=== PATIENT | male | born 1940 | race Caucasian/White ===

== ENCOUNTER 2016-06-08 06:33 | Day surgery (SDC) | payer OTHER ==
[2016-06-08] MEDS ORDERED: PROPOFOL 200 MG/20 ML VIAL IVP ONE (06:49)
[2016-06-08] MEDS ORDERED: MIDAZOLAM 2 MG/2 ML VIAL IVP ONE (06:49)
[2016-06-08] MEDS ORDERED: NS 500 ML IV ONE (06:49)
[2016-06-08] MEDS ORDERED: fentaNYL 100 MCG/2 ML INJ IVP ONE (06:49)
[2016-06-08] MEDS ORDERED: BENZOCAINE UNIT DOSE SPRAY HURRICAINE MM ONE (06:49)
--- NOTE | 2016-06-08 06:55 | CPEKG ---
Heart Rate: 108 RR Interval: 556 QRSD Interval: 92 QT Interval: 368 QTC Interval: 494 QRS [place]: 56 T Wave [place]: 48 EKG Severity - ABNORMAL ECG - EKG Impression: ATRIAL FIBRILLATION, V-RATE 84-149 EKG Impression: BORDERLINE PROLONGED QT INTERVAL EKG Impression: Agree with above Electronically Signed By: Quincy Galvan 08-Jun-2016 17:47:09
[2016-06-08 07:19] LABS: APTT 31.6 SEC (23.0-38.0); INR 1.29 (0.83-1.16); PROTIME(PATIENT) 16.1 SEC (12.0-15.0)
[2016-06-08 07:28] LABS: ANION GAP 8 mEq/L (8-16); CALCIUM 9.4 mg/dL (8.5-10.4); CARBON DIOXIDE 29 mEq/l (22-31); CHLORIDE 105 mEq/L (97-110); CREATININE 0.9 mg/dL (0.7-1.3); GLOMERULAR FILTRATION RATE > 60; GLUCOSE 89 mg/dL (70-100); POTASSIUM 4.1 mEq/L (3.5-5.2); SODIUM 142 mEq/L (134-144)
[2016-06-08] MEDS ORDERED: LIDOCAINE 1% 5 ML SDV ONE (07:58)
[2016-06-08] MEDS ORDERED: PROPOFOL 200 MG/20 ML VIAL ONE (07:58)
--- NOTE | 2016-06-08 08:52 | CPEKG ---
Heart Rate: 63 RR Interval: 952 P-R Interval: 200 QRSD Interval: 102 QT Interval: 444 QTC Interval: 455 P [place]: 69 QRS [place]: 51 T Wave [place]: 61 EKG Severity - OTHERWISE NORMAL ECG - EKG Impression: SINUS RHYTHM EKG Impression: ATRIAL PREMATURE COMPLEX EKG Impression: Resolution of atrial fibrillation since June 08, 2016, 6:53 Electronically Signed By: Quincy Galvan 08-Jun-2016 17:45:18
--- NOTE | 2016-06-08 09:02 | CPIP ---
[f rep st] INVASIVE CARDIAC PROCEDURE DATE OF PROCEDURE: 06/08/2016 PROCEDURE: Transesophageal echocardiography-guided cardioversion. INDICATIONS: Symptomatic atrial fibrillation. COMPLICATIONS: None. DESCRIPTION OF PROCEDURE: N.p.o. status was confirmed, informed consent obtained, and timeout perfo rmed. Sedation was provided by Dr. Lang of the anesthesia service. The SYLVIA probe was passed wi thout difficulty and images obtained. Please see separate report. In summary, low normal LV ejecti on fraction 50% to 55%. Moderate left atrial enlargement. Moderate mitral regurgitation. Moderate tricuspid regurgitation with normal estimated pulmonary pressures. No intracardiac thrombus. We proceeded with direct current cardioversion. The patient received a single 200 joule synchronize d shock that converted him from atrial fibrillation to normal sinus rhythm. A 12-lead EKG is pendin g. CONCLUSION: Successful transesophageal echocardiography-guided cardioversion. PLAN: 1. Continue Eliquis as prescribed. Reduce Coreg to 3.125 mg twice daily. Start daily propafenone 150 mg p.o. three times daily. 2. Follow up in 2 weeks. Results discussed with the patient's . Patient currently in stable condition. /[id number]/MODL
== END 2016-06-08 09:41 | disposition home or self-care (01) ==
LOC: FCATH 06:33
PROVIDERS: ATTEND Internal Medicine Cardiovascular Disease
PROC: 5A2204Z Restoration of Cardiac Rhythm, Single (ICD-10-PCS; principal; 2016-06-08)
PROC: B245ZZ4 Ultrasonography of Left Heart, Transesophageal (ICD-10-PCS; principal; 2016-06-08)
DX: I48.91 Unspecified atrial fibrillation (principal); E78.00 Pure hypercholesterolemia, unspecified; I25.10 Atherosclerotic heart disease of native coronary artery without angina pectoris; I71.2 Thoracic aortic aneurysm, without rupture
CPT/HCPCS: J2704

== ENCOUNTER → 2016-10-04 | Outpatient (CLI) | payer OTHER ==
[~2016-10-04] MED LIST: IOPAMIDOL (ISOVUE 370) 100 ML BTL IV ONE
== END ==
LOC: FIMAGING 09:40
PROVIDERS: ATTEND Internal Medicine Cardiovascular Disease
DX: Z01.818 Encounter for other preprocedural examination (principal); I48.91 Unspecified atrial fibrillation; E04.0 Nontoxic diffuse goiter
CPT/HCPCS: 75572; Q9967

== ENCOUNTER 2016-10-11 10:55 | Observation (INO) | payer OTHER ==
[2016-10-11] MEDS ORDERED: MIDAZOLAM 2 MG/2 ML VIAL IVP ONE (11:06)
[2016-10-11] MEDS ORDERED: NS 1,000 ML IV ONE (11:06)
--- NOTE | 2016-10-11 11:44 | CPEKG ---
Heart Rate: 95 RR Interval: 632 QRSD Interval: 94 QT Interval: 388 QTC Interval: 488 QRS [place]: 70 T Wave [place]: 71 EKG Severity - ABNORMAL ECG - EKG Impression: ATRIAL FIBRILLATION, V-RATE 65-142 EKG Impression: PROBABLE ANTEROSEPTAL INFARCT, OLD EKG Impression: BORDERLINE PROLONGED QT INTERVAL Electronically Signed By: Sabas Leos 11-Oct-2016 17:20:38
[2016-10-11] MEDS ORDERED: BUPIVACAINE 0.5% 30 ML SDV ONE (11:57)
[2016-10-11] MEDS ORDERED: LIDOCAINE 1% 300 MG/30 ML SDV ONE (11:57)
[2016-10-11] MEDS ORDERED: HEPARIN 10,000 UNIT/10 ML MDV ONE (11:57)
[2016-10-11] MEDS ORDERED: HEPARIN/DEXTROSE 25,000 UNIT/500 ML BAG ONE (11:57)
[2016-10-11] MEDS ORDERED: IOPAMIDOL (ISOVUE-300) 100 ML BTL ONE (11:58)
[2016-10-11 12:05] LABS: % IMMATURE GRANULYOCYTES 0.3 % (0.0-1.1); ABSOLUTE IMMATURE GRANULOCYTES 0.02 10^3/uL (0.00-0.10); ABSOLUTE NRBC COUNT 0.02 10^3/uL (0-0.01); ADD DIFF? NO; ADD MORPH? NO; ADD SCAN? NO; ATYPICAL LYMPHOCYTE FLAG 30 (0-99); FRAGMENT RBC FLAG 0 (0-99); HEMATOCRIT 50.7 % (40.0-51.0); HEMOGLOBIN 16.5 g/dL (13.7-17.5); LEFT SHIFT FLG 10 (0-99); LIPEMIA HEMOLYSIS FLAG 80 (0-99); MEAN CELL HEMOGLOBIN 32.7 pg (27.9-34.1); MEAN CELL HEMOGLOBIN CONCENTR. 32.5 g/dL (32.4-36.7); MEAN CELL VOLUME 100.4 fL (81.5-99.8); MEAN PLATELET VOLUME 11.5 fL (8.7-11.7); NRBC-AUTO% 0.3 % (0.0-0.2); PLATELET CLUMPS FLAG 20 (0-99); PLATELET COUNT 117 10^3/uL (150-400); RED BLOOD CELL COUNT 5.05 10^6/uL (4.40-6.38); RED CELL DISTRIBUTION WIDTH 12.5 % (11.5-15.2)
[2016-10-11 12:14] LABS: APTT 29.8 SEC (23.0-38.0); INR 1.21 (0.83-1.16); PROTIME(PATIENT) 15.3 SEC (12.0-15.0)
[2016-10-11 12:18] LABS: ANION GAP 12 mEq/L (8-16); CALCIUM 9.7 mg/dL (8.5-10.4); CARBON DIOXIDE 23 mEq/l (22-31); CHLORIDE 108 mEq/L (97-110); CREATININE 0.9 mg/dL (0.7-1.3); GLOMERULAR FILTRATION RATE > 60; GLUCOSE 93 mg/dL (70-100); POTASSIUM 4.8 mEq/L (3.5-5.2); SODIUM 143 mEq/L (134-144)
[2016-10-11] MEDS ORDERED: PROPOFOL/EMULSION 500 MG/50 ML BOTTLE IV ONE (12:41)
[2016-10-11] MEDS ORDERED: DEXAMETHASONE 4 MG/ML VIAL ONE (12:41)
[2016-10-11] MEDS ORDERED: fentaNYL 100 MCG/2 ML INJ ONE (12:41)
[2016-10-11] MEDS ORDERED: ROCURONIUM 100 MG/10 ML VIAL ONE (12:41)
[2016-10-11] MEDS ORDERED: PHENYLEPHRINE HCL 100 MCG/ML SYR ONE (13:15)
[2016-10-11] MEDS ORDERED: VASOPRESSIN 20 UNIT/ML VIAL ONE (14:33)
[2016-10-11] MEDS ORDERED: epHEDrine SULFATE 10 MG/ML SYR ONE (15:06)
[2016-10-11] MEDS ORDERED: PROTAMINE SULFATE 50 MG/5 ML VIAL IVP ONE (15:34)
[2016-10-11] MEDS ORDERED: ALBUTEROL 3 ML DEYVIAL IH PRN (15:53)
[2016-10-11] MEDS ORDERED: fentaNYL 100 MCG/2 ML INJ IVP PRN (15:53)
[2016-10-11] MEDS ORDERED: PROMETHAZINE HCL 25 MG/ML INJ IVP PRN (15:53)
[2016-10-11] MEDS ORDERED: NALOXONE HCL 0.4 MG/ML INJ IVP PRN (15:53)
[2016-10-11] MEDS ORDERED: ONDANSETRON 4 MG/2 ML VIAL IVP PRN (15:53)
[2016-10-11] MEDS ORDERED: ATROPINE SULFATE 1 MG/10 ML SYR ONE (16:17)
--- NOTE | 2016-10-11 16:32 | EPPROC ---
Electrophysiology Procedure Note: ELECTROPHYSIOLOGIC STUDY AND BALLOON-CATHETER MEDIATED CRYOABLATION FOR EARLY PERSISTENT ATRIAL FIBRILLATION Procedures performed: 33548-26 EP evaluation with RA/RV/LA pace/record, with arrhythmia induction 87142-95 EP evaluation with RA/RV pace record, insert/reposition catheter, with arrhythmia induction 96635 Atrial fibrillation ablation Intracardiac echocardiogram Transseptal puncture Fluoroscopy INDICATION: Paroxysmal atrial fibrillation PROCEDURE: The patient arrived in the Electrophysiology Laboratory in the fasting state. The right groin, left groin and right infraclavicular area were prepped and draped in the usual sterile fashion. Anesthesiologist administered general anesthesia Dr. Gabo Nova . All catheters were placed percutaneously using the Seldinger technique and advanced into position under fluoroscopic guidance. One #7 [place]ian deflectable octapolar electrode catheter was placed in the His-bundle position via the left femoral vein (2mm spacing, IVC electrode for unipolar recordings). This catheter was placed in the coronary sinus after transseptal puncture and later placed in the SVC-R subclavian vein junction to pace the right phrenic nerve during right pulmonary vein ablation. One #8 [place] AcuNaV ultrasound catheter was placed in the left femoral vein and advanced into the right atrium. One #4 [place] sheath was inserted into the left femoral artery via percutaneous technique and used for continuous arterial blood pressure monitoring and intermittent ACT determination. Programmed stimulation was performed from the right atrium, left atrium (CS) and right ventricle. There was no evidence of AV accessory pathway. Intracardiac echo evaluation of the left atrium and pulmonary veins was performed. Baseline ACT was drawn and heparin bolus was administered and heparin drip was started prior to transseptal puncture. ACT was checked every 15 minutes and maintained in the range of 350-400 seconds. One 14Fr short sheath was placed in the right femoral vein. One 8Fr SL1 sheath was advanced into the right atrium via the 14Fr short sheath. Transseptal puncture was performed under intracardiac ultrasound, fluoroscopic and hemodynamic guidance placing the sheath into the left atrium. Harrod RF needle ( C1 curve) was used. The mean left atrial pressure was 12 mmHg. Pulmonary vein angiogram was done using SL1 sheath. CT angiography of pulmonary veins was done previously. There were distinct LSPV, LIPV, RSPV , RMPV and RIPV. RMVP and RIPV had common ostium with short distance to branching. Pentaray catheter was used to map the left atrium and CT merge was done for guidance in placing the CB catheter. Achieve catheter was visualized throughout the procedure on Carto system. The SL1 sheath was exchanged for a Medtronic Flexcath sheath using an Amplatz stiff guide wire. A 28 mm Cryoballoon catheter with a 20 mm Achieve catheter was placed via the sheath into the left atrium. Intracardiac ultrasound and PV angiograms were used to assist in placing the mapping catheter at the antrum of the pulmonary veins. All pulmonary veins were isolated successfully using cryoballoon ablation using freeze/thaw/freeze cycles at 2-3-minute intervals, with good [id number] of isolation. Coumadin ridge/Ligament of Simon region was ablated. Pre and post pulmonary vein recordings were measured on the spiral Achieve catheter to ensure complete pulmonary vein isolation. During the right-sided ablation, phrenic nerve pacing was performed to assess the phrenic nerve strength ( manually and with ICE visualization of liver movement during phrenic capture) and the phrenic nerve was intact throughout the right-sided ablation and at the end of the procedure. An esophageal temperature probe (12 electrode, Circa) was placed by the anesthesiologist at the beginning of the procedure. Esophageal temperature was monitored continuously and cryoablation was interrupted if esophageal temperature was <15 C. Cryoapplications 9 total cryoablation time 1214 s. ICE imaging post ablation was consistent with pre ablation imaging with no changes noted, moreover there was no left atrial/left ventricular thrombus and no pericardial effusion. The catheters were withdrawn. Protamine was given. The sheaths were removed and manual pressure was used for hemostasis. The patient was recovered from anesthesia. There were no complications. The patient was arousable and moving all four extremities at the end of the procedure. CONCLUSIONS: 1. Persistent atrial fibrillation. (moderate MR while in AFIB) 2. Successful pulmonary vein isolation procedure (left and right pulmonary vein antrum) using cryoballoon ablation. 3. No apparent complications. Patient Problems: Problems Problem Status Onset Osteoarthritis of hip Acute
[2016-10-11] MEDS ORDERED: OXYCODONE/APAP 5/325 TAB PO PRN (16:33)
[2016-10-11] MEDS ORDERED: ACETAMINOPHEN 325 MG TAB PO PRN (16:33)
--- NOTE | 2016-10-11 16:53 | POSTANESTH ---
Post Anesthetic Evaluation Cardiovascular Status: Normal, Stable Respiratory Status: Normal, Stable Level of Consciousness/Mental Status: Can Participate in Eval, Mildly Sleepy, Arousable Pain Control: Adequate, Prn Tx Ordered Nausea/Vomiting Control: Adequate, Prn Tx Ordered Complications Possibly Related to Anesthesia: None Noted
--- NOTE | 2016-10-11 16:57 | CPEKG ---
Heart Rate: 79 RR Interval: 759 P-R Interval: 200 QRSD Interval: 100 QT Interval: 444 QTC Interval: 510 P [place]: 70 QRS [place]: 74 T Wave [place]: 71 EKG Severity - ABNORMAL ECG - EKG Impression: SINUS RHYTHM EKG Impression: VENTRICULAR PREMATURE COMPLEX EKG Impression: LEFT ATRIAL ABNORMALITY EKG Impression: PROLONGED QT INTERVAL Electronically Signed By: Sabas Leos 11-Oct-2016 17:20:18
[2016-10-11 17:59] LABS: ANION GAP 6 mEq/L (8-16); CARBON DIOXIDE 16 mEq/l (22-31); CHLORIDE 123 mEq/L (97-110); CREATININE 0.6 mg/dL (0.7-1.3); GLOMERULAR FILTRATION RATE > 60; GLUCOSE 88 mg/dL (70-100); MAGNESIUM 1.1 mg/dL (1.6-2.3); SODIUM 145 mEq/L (134-144)
[2016-10-11 18:02] LABS: CALCIUM 5.4 mg/dL (8.5-10.4)
[2016-10-11] MEDS: CARVEDILOL 6.25 MG TAB PO SCH (18:23)
[2016-10-11 18:40] LABS: ANION GAP 7 mEq/L (8-16); CARBON DIOXIDE 24 mEq/l (22-31); CHLORIDE 108 mEq/L (97-110); CREATININE 0.9 mg/dL (0.7-1.3); GLOMERULAR FILTRATION RATE > 60; GLUCOSE 114 mg/dL (70-100); MAGNESIUM 1.8 mg/dL (1.6-2.3); SODIUM 139 mEq/L (134-144)
[2016-10-11] MEDS ORDERED: ATORVASTATIN CALCIUM 40 MG TAB PO SCH (21:00)
[2016-10-11] MEDS ORDERED: ENOXAPARIN 80 MG/0.8 ML SYR SC SCH (23:00)
[2016-10-12 06:27] LABS: % IMMATURE GRANULYOCYTES 0.4 % (0.0-1.1); ABSOLUTE IMMATURE GRANULOCYTES 0.05 10^3/uL (0.00-0.10); ADD DIFF? NO; ADD MORPH? NO; ADD SCAN? NO; ATYPICAL LYMPHOCYTE FLAG 0 (0-99); FRAGMENT RBC FLAG 0 (0-99); HEMATOCRIT 43.4 % (40.0-51.0); HEMOGLOBIN 14.4 g/dL (13.7-17.5); LEFT SHIFT FLG 20 (0-99); LIPEMIA HEMOLYSIS FLAG 80 (0-99); MEAN CELL HEMOGLOBIN 32.9 pg (27.9-34.1); MEAN CELL HEMOGLOBIN CONCENTR. 33.2 g/dL (32.4-36.7); MEAN CELL VOLUME 99.1 fL (81.5-99.8); PLATELET CLUMPS FLAG 0 (0-99); PLATELET COUNT 114 10^3/uL (150-400); RED BLOOD CELL COUNT 4.38 10^6/uL (4.40-6.38); RED CELL DISTRIBUTION WIDTH 12.3 % (11.5-15.2)
[2016-10-12 06:36] LABS: INR 1.26 (0.83-1.16); PROTIME(PATIENT) 15.8 SEC (12.0-15.0)
[2016-10-12 06:38] LABS: ANION GAP 10 mEq/L (8-16); CALCIUM 8.9 mg/dL (8.5-10.4); CARBON DIOXIDE 22 mEq/l (22-31); CHLORIDE 108 mEq/L (97-110); CREATININE 0.8 mg/dL (0.7-1.3); GLOMERULAR FILTRATION RATE > 60; GLUCOSE 109 mg/dL (70-100); POTASSIUM 4.3 mEq/L (3.5-5.2); SODIUM 140 mEq/L (134-144)
[2016-10-12 07:17] LABS: CK-MB INTERPRETATION POSITIVE (NEGATIVE)
[2016-10-12] MEDS: CARVEDILOL 6.25 MG TAB PO SCH (08:41)
--- NOTE | 2016-10-12 08:44 | CPEKG ---
Heart Rate: 82 RR Interval: 732 P-R Interval: 192 QRSD Interval: 108 QT Interval: 424 QTC Interval: 496 P [place]: 64 QRS [place]: 62 T Wave [place]: 65 EKG Severity - BORDERLINE ECG - EKG Impression: SINUS RHYTHM EKG Impression: ATRIAL PREMATURE COMPLEX Electronically Signed By: Henrry Randall 12-Oct-2016 11:06:19
[2016-10-12] MEDS ORDERED: OMEGA-3 FATTY ACIDS 1,000 MG CAP PO SCH (09:00)
[2016-10-12] MEDS ORDERED: METHIMAZOLE 5 MG TAB PO SCH (09:00)
[2016-10-12] MEDS ORDERED: PANTOPRAZOLE SODIUM 40 MG TAB PO SCH (09:00)
[2016-10-12] MEDS ORDERED: MULTIVITAMINS 1 EACH TAB PO SCH (09:00)
[2016-10-12] MEDS ORDERED: NON-FORMULARY NEW DRUG (Omeprazole [Prilosec 20 Mg] 20 MG) PO SCH (09:00)
[2016-10-12] MEDS ORDERED: APIXABAN 5 MG TAB PO SCH (09:00)
[2016-10-12 10:24] VITALS: TEMP 98.5
--- NOTE | 2016-10-12 11:11 | ECHO ---
[id number] + + [address] : : [place] [address] : : [phone] + + Adult Echocardiographic Report + -------+ :Name: MARIBELL ARELLANO HStudy Date: 10/12/2016 10:08 AM : : Hospital Admission Number: [id number] Locati on: 249: :: 1940 Gender: Male Height: 70 in : :Age: 76 yrs Race: WH Weight: 190 lb : : : : BSA: 2.0 meter s2 : :History: Post EP : + -------+ MMode/2D Measurements \T\ Calculations IVSd: 1.0 cm LVIDd: 4.2 cm FS: 27.6 % Ao root diam: 3.7 cm LVPWd: 0.99 cm LVIDs: 3.0 cm EDV(Teich): 76.4 ml ACS: 2.4 cm ESV(Teich): 35.1 ml EF(Teich): 54.0 % Normal Measurement Values: + + :LVIDd (3.5-5.7cm) IVSd (0.6-1.1cm) LVPWd (0.6-1.1cm) Aortic Root (2.0-3.7cm)Left Atrium (1.5-4.0cm): :LV Vol(d) (76-115ml) LV Vol(s) (29-48ml) Ejec Fraction (50-65%)PV Marquez (0.6- 1.2m/s) TV Marquez (0.4-1.0m/s) : :MV E Marquez (0.8-1.0m/s)MV A Marquez (0.3-1.0m/s)LVOT Marquez (0.7-1.2m/s) Asc Ao Marquez ( 0.9-1.8m/s) : + + Left Ventricle The left ventricle is normal in size. There is normal left ventricular wall thickness. Left ventricular systolic function is low normal. There is inferoseptal and basialr to mid inferolateral dyskinesis. Right Ventricle The right ventricle is normal in size and function. Atria The left atrium is mildly dilated. Right atrial size is normal. Mitral Valve The mitral valve is normal. There is no mitral valve stenosis. There is mild to moderate mitral regurgitation. Tricuspid Valve There is mild to moderate tricuspid regurgitation. Doppler findings do not suggest pulmonary hypertension. Aortic Valve The aortic valve is trileaflet. There is no aortic stenosis. There is no aortic insufficiency. Pulmonic Valve The pulmonic valve is normal in structure and function. There is no pulmonic valvular regurgitation. Great Vessels The aortic root is normal size. Pericardium/Pleural There is no pericardial effusion. Conclusion Left ventricular systolic function is low normal. There is inferoseptal and basilar to mid inferolateral dyskinesis. The right ventricle is normal in size and function. The left atrium is mildly dilated. The mitral valve is normal. There is mild to moderate mitral regurgitation. There is mild to moderate tricuspid regurgitation. Doppler findings do not suggest pulmonary hypertension. The aortic valve is trileaflet. There is no pericardial effusion. Final Reading Physician: Henrry Randall MD electronically signed on 10/12/2016 11:10 AM Ordering Physician: Henrry Randall
[2016-10-12 12:56] VITALS: BP 128/81; PULSE 75; RESP 20; O2SAT 94
--- NOTE | 2016-10-13 04:59 | GDS ---
[f rep st] DISCHARGE SUMMARY DISCHARGE DIAGNOSES: 1. Paroxysmal atrial fibrillation, status post ablation. 2. Moderate mitral regurgitation. 3. Toxic multinodular goiter. 4. Hyperthyroidism. BRIEF HISTORY: This is a 76-year-old man with an 8-year history of paroxysmal atrial fibrillation. Episodes had been increasing, although he was taking Rythmol. He was symptomatic with his atrial f ibrillation. He opted for an ablation procedure over taking sotalol. HOSPITAL COURSE: The patient underwent successful pulmonary vein isolation using cryo balloon ablat ion done by Dr. Randall. There were no complications. Overnight, he has done well. He has not had any atrial fibrillation or other arrhythmias. He has not had any kind of chest pain or shortness of br eath. He has not had any pain at his groin sites. There has not been any bleeding. TESTING DONE: 12-lead EKG on 10/11 shows sinus rhythm with septal Q-waves. EKG on 10/12 is unchang ed without any ST elevation or depression. Echocardiogram done on 10/12 that was read by Dr. Tonia paezs low-normal ejection fraction 50% to 55%. There is inferoseptal in dvdiyde-vx-ppe inferol ateral dyskinesis, fjub-st-[id number] MR and TR. No pericardial effusion. PHYSICAL EXAM: VITAL SIGNS: Blood pressure is 132/79, pulse is 69, respirations 17, temperature is 37 Celsius, O2 saturation on room air is 92%. GENERAL: He is alert and oriented, sitting up in th e chair in no acute distress. LUNGS: Clear to auscultation. HEART: Regular rate, rhythm with a 1 /6 systolic ejection murmur. ABDOMEN: Soft and nontender. Groin sites are without bleeding, ecchy mosis, or bruits. EXTREMITIES: Warm. No discoloration. No lower extremity edema. LABS: WBC is 12.63, hemoglobin 14.4, hematocrit 43.4, platelets 114. PT 15.8, INR is 1.26. Sodium 140, potassium 4.3, chloride 108, bicarb 22, BUN 15, creatinine 0.8, glucose 109, CK is 102, CK-MB is 12.8, troponin is 4.030. These are elevated and expected post ablation. MEDICATIONS: Please see med discharge reconciliation. He was restarted on Eliquis 5 mg p.o. daily. DISCHARGE INSTRUCTIONS: He was given a printed information sheet with activity restrictions. FOLLOWUP: He has a followup with Dr. Randall on October 27 at 1:15. /[id number]/MODL
== END 2016-10-12 13:30 | disposition home or self-care (01) ==
LOC: FCATH 10:55 → F2N 16:07 → INTOOBSV 16:07
PROVIDERS: ADMIT Internal Medicine Cardiovascular Disease; ATTEND Internal Medicine Cardiovascular Disease
PROC: 5A2204Z Restoration of Cardiac Rhythm, Single (ICD-10-PCS; principal; 2016-10-11)
PROC: 025S3ZZ Destruction of Right Pulmonary Vein, Percutaneous Approach (ICD-10-PCS; principal; 2016-10-11)
PROC: B245ZZ4 Ultrasonography of Left Heart, Transesophageal (ICD-10-PCS; principal; 2016-10-11)
DX: I48.0 Paroxysmal atrial fibrillation (principal); I34.0 Nonrheumatic mitral (valve) insufficiency; E05.20 Thyrotoxicosis with toxic multinodular goiter without thyrotoxic crisis or storm; Z79.01 Long term (current) use of anticoagulants
CPT/HCPCS: 92960; 93005; 93306; 93312; 93613; 93656; 93662; C1730; C1731; C1732; C1733; C1759; C1766; C1893; G0378; J1100; J1644; J1650; J2370; J2704; J2720; J3010; Q9967; J0461

== ENCOUNTER 2016-10-19 09:58 | Day surgery (SDC) | payer OTHER ==
[2016-10-19] MEDS ORDERED: fentaNYL 100 MCG/2 ML INJ IVP ONE (10:03)
[2016-10-19] MEDS ORDERED: PROPOFOL 200 MG/20 ML VIAL IVP ONE (10:03)
[2016-10-19] MEDS ORDERED: NS 500 ML IV ONE (10:03)
[2016-10-19] MEDS ORDERED: ETOMIDATE 20 MG/10 ML VIAL IVP ONE (10:03)
[2016-10-19] MEDS ORDERED: BENZOCAINE UNIT DOSE SPRAY HURRICAINE MM ONE (10:03)
[2016-10-19] MEDS ORDERED: MIDAZOLAM 2 MG/2 ML VIAL IVP ONE (10:03)
--- NOTE | 2016-10-19 10:22 | CPEKG ---
Heart Rate: 118 RR Interval: 508 QRSD Interval: 96 QT Interval: Invalid QTC Interval: Invalid QRS [place]: 54 T Wave [place]: 50 EKG Severity - ABNORMAL ECG - EKG Impression: ATRIAL FIBRILLATION, V-RATE 66-160 Electronically Signed By: Henrry Randall 19-Oct-2016 11:49:11
[2016-10-19] MEDS ORDERED: APIXABAN 5 MG TAB ONE (10:25)
[2016-10-19] MEDS ORDERED: APIXABAN 5 MG TAB PO ONE (10:30)
[2016-10-19] MEDS ORDERED: PROPOFOL 200 MG/20 ML VIAL ONE (10:33)
[2016-10-19 10:43] LABS: APTT 30.3 SEC (23.0-38.0); INR 1.28 (0.83-1.16)
[2016-10-19 11:01] LABS: ANION GAP 11 mEq/L (8-16); CALCIUM 9.3 mg/dL (8.5-10.4); CARBON DIOXIDE 27 mEq/l (22-31); CHLORIDE 103 mEq/L (97-110); CREATININE 0.9 mg/dL (0.7-1.3); GLOMERULAR FILTRATION RATE > 60; GLUCOSE 95 mg/dL (70-100); MAGNESIUM 1.9 mg/dL (1.6-2.3); POTASSIUM 4.7 mEq/L (3.5-5.2); SODIUM 141 mEq/L (134-144)
--- NOTE | 2016-10-19 13:11 | CPIP ---
[f rep st] INVASIVE CARDIAC PROCEDURE Patient was scheduled for AZAM guided cardioversion. Azam was done, and this did not show any left at rial or left atrial appendage thrombus. Transseptal puncture site showed npmg-gn-rebis shunt. The patient received three 200 joules biphasic synchronized DC shocks with conversion to sinus rhyth m but early recurrence of atrial fibrillation. A 4th shock was delivered after repositioning the po sterior defibrillator patch to a more inferior location and with external pressure applied by defibr illator paddles. The patient did return to sinus rhythm, but there was early recurrence of atrial f ibrillation. PLAN: For the patient to take his Eliquis and continue it without missing a single dose. He has al so been given a prescription for Rythmol SR 225 mg b.i.d., which he was started this evening. I mario l see him in clinic next week, and if he is still in atrial fibrillation, plan cardioversion procedu re on . /[id number]/MODL
== END 2016-10-19 11:48 | disposition home or self-care (01) ==
LOC: FCATH 09:58
PROVIDERS: ATTEND Internal Medicine Cardiovascular Disease
PROC: 5A2204Z Restoration of Cardiac Rhythm, Single (ICD-10-PCS; principal; 2016-10-19)
DX: I48.91 Unspecified atrial fibrillation (principal); Z79.01 Long term (current) use of anticoagulants
CPT/HCPCS: J2704

== ENCOUNTER 2016-10-28 08:19 | Day surgery (SDC) | payer OTHER ==
[2016-10-28] MEDS ORDERED: BENZOCAINE UNIT DOSE SPRAY HURRICAINE MM ONE (08:23)
[2016-10-28] MEDS ORDERED: MIDAZOLAM 2 MG/2 ML VIAL IVP ONE (08:23)
[2016-10-28] MEDS ORDERED: NS 500 ML IV ONE (08:23)
[2016-10-28] MEDS ORDERED: fentaNYL 100 MCG/2 ML INJ IVP ONE (08:23)
[2016-10-28] MEDS ORDERED: PROPOFOL 200 MG/20 ML VIAL IVP ONE (08:23)
--- NOTE | 2016-10-28 08:37 | CPEKG ---
Heart Rate: 108 RR Interval: 556 QRSD Interval: 106 QT Interval: 340 QTC Interval: 456 QRS [place]: 61 T Wave [place]: 52 EKG Severity - ABNORMAL ECG - EKG Impression: ATRIAL FIBRILLATION Electronically Signed By: Henrry Randall 28-Oct-2016 10:13:37
[2016-10-28 09:01] LABS: INR 1.43 (0.83-1.16); PROTIME(PATIENT) 17.4 SEC (12.0-15.0)
[2016-10-28 09:14] LABS: ANION GAP 12 mEq/L (8-16); CALCIUM 9.2 mg/dL (8.5-10.4); CARBON DIOXIDE 27 mEq/l (22-31); CHLORIDE 103 mEq/L (97-110); GLOMERULAR FILTRATION RATE > 60; GLUCOSE 99 mg/dL (70-100); MAGNESIUM 1.9 mg/dL (1.6-2.3); POTASSIUM 4.4 mEq/L (3.5-5.2); SODIUM 142 mEq/L (134-144)
[2016-10-28] MEDS ORDERED: LIDOCAINE 2% 5 ML SDV ONE (09:18)
--- NOTE | 2016-10-28 09:59 | CPEKG ---
Heart Rate: 71 RR Interval: 845 P-R Interval: 212 QRSD Interval: 108 QT Interval: 432 QTC Interval: 470 P [place]: 63 QRS [place]: 40 T Wave [place]: 51 EKG Severity - ABNORMAL ECG - EKG Impression: SINUS RHYTHM EKG Impression: SUPRAVENTRICULAR BIGEMINY Electronically Signed By: Henrry Randall 28-Oct-2016 10:13:34
--- NOTE | 2016-10-28 17:18 | CPIP ---
[f rep st] INVASIVE CARDIAC PROCEDURE DATE OF PROCEDURE: 10/28/2016 INDICATIONS: Symptomatic atrial fibrillation. PROCEDURE: Direct current cardioversion. COMPLICATIONS: None apparent. DESCRIPTION OF PROCEDURE: N.p.o. status was confirmed, informed consent obtained, and time-out perf ormed. Sedation was provided by Dr. Rabago of the anesthesia service. The patient had had a SYLVIA wi thout intracardiac thrombus 1 week previously and has missed no doses of Eliquis, therefore, we elec jordan to proceed directly to cardioversion without SYLVIA. After adequate sedation, the patient received a single 200-joule synchronized shock, which converted him from atrial fibrillation to normal sinus rhythm. EKG is pending. CONCLUSIONS: Successful direct current cardioversion. Continue Eliquis and Rythmol. Follow up wit h Dr. Castro or Dr. Randall in 1-2 weeks. Results were discussed with the patient's , and he is yennyjulio caren in stable condition. /[id number]/MODL
== END 2016-10-28 12:00 | disposition home or self-care (01) ==
LOC: FCATH 08:19
PROVIDERS: ATTEND Internal Medicine Cardiovascular Disease
PROC: 5A2204Z Restoration of Cardiac Rhythm, Single (ICD-10-PCS; principal; 2016-10-28)
DX: I48.1 Persistent atrial fibrillation (principal); I10 Essential (primary) hypertension; Z79.01 Long term (current) use of anticoagulants
CPT/HCPCS: J2250; J2704